=== PATIENT | male | born 1965 | race Caucasian/White ===

== ENCOUNTER 2023-03-02 13:59 | Emergency (ER) | payer OTHER ==
[2023-03-02] MEDS ORDERED: Lidocaine/Prilocaine 2.5-2.5% Crm 5 GM Tube TOP ONE (14:29)
[2023-03-02] MEDS ORDERED: Diphtheria,Pertussis(Acell),Tetanus Vaccine 0.5 ML Syringe IM ONE (14:32)
[2023-03-02] MEDS ORDERED: Bacitracin/Neomycin/Polymyxin B Oint 0.9 GM U/D Packet TOP ONE (14:55)
== END 2023-03-02 15:06 | disposition home or self-care (01) ==
LOC: CC.ED 13:59
DX: S01.01XA Laceration without foreign body of scalp, initial encounter (principal); Z23 Encounter for immunization; W26.8XXA Contact with other sharp object(s), not elsewhere classified, initial encounter
CPT/HCPCS: 12002; 90471; 90715; 99282; A9270-GY